=== PATIENT | male | born 1985 | race African-American/Black ===

== ENCOUNTER 2020-06-03 13:15 | Inpatient (IN) | payer OTHER ==
[2020-06-03 15:37] VITALS: BMI 21.9
[2020-06-03] MEDS ORDERED: MAGNESIUM CITRATE 300 ML BOTTLE PO PRN (16:20)
[2020-06-03] MEDS ORDERED: ACETAMINOPHEN 325 MG TABLET (FP) PO PRN (16:20)
[2020-06-03] MEDS ORDERED: NICOTINE POLACRILEX 2 MG GUM BUC PRN (16:20)
[2020-06-03] MEDS ORDERED: METHOCARBAMOL 500 MG TABLET PO PRN (16:20)
[2020-06-03] MEDS ORDERED: MENTHOL/PHENOL 1 EACH UD MM PRN (16:20)
[2020-06-03] MEDS ORDERED: ONDANSETRON *ODT* 4 MG TABLET SL PRN (16:20)
[2020-06-03] MEDS ORDERED: MAG HYDROX/AL HYDROX/SIMETH 30 ML UNIT-DOSE CUP PO PRN (16:20)
[2020-06-03] MEDS ORDERED: MAGNESIUM HYDROX 2400MG/30ML ORAL SUSPENSION 30 ML CUP PO PRN (16:20)
[2020-06-03] MEDS ORDERED: chlordiazePOXIDE HCL 25 MG CAPSULE PO PRN (16:22)
[2020-06-03] MEDS: chlordiazePOXIDE HCL 25 MG CAPSULE PO SCH ×2 (18:11→22:14)
[2020-06-03] MEDS: MELATONIN 5 MG TABLETS PO SCH (22:14)
[2020-06-03] MEDS: THIAMINE HCL 100 MG TABLET (FP) PO SCH (22:14)
[2020-06-03] MEDS: BACITRACIN 0.9 GM PACKET TP SCH (22:17)
[2020-06-04] MEDS: chlordiazePOXIDE HCL 25 MG CAPSULE PO SCH ×4 (05:33→22:23)
[2020-06-04] MEDS: PRENATAL VITAMINS W/ FOLIC ACID TABLET (FP) PO SCH (10:23)
[2020-06-04] MEDS: IBUPROFEN 400 MG TABLET (FP) PO PRN (10:26)
[2020-06-04] MEDS: BACITRACIN 0.9 GM PACKET TP SCH ×2 (10:27→22:25)
[2020-06-04 11:34] LABS: HEMATOCRIT 34.2 % (35.4-49); HEMOGLOBIN 11.6 GM/dL (11.7-16.9); MEAN CELL VOLUME 85.3 fl (80-96); MEAN PLT VOLUME 8.6 fl (7.5-11.1); PLATELET COUNT 112 K/MM3 (134-434); RBC 4.01 M/mm3 (4.00-5.60); RDW 15.4 % (11.9-15.9); WHITE BLOOD COUNT 6.1 K/mm3 (4.0-10.0)
[2020-06-04 11:49] LABS: BLOOD UREA NITROGEN 5.8 mg/dL (7-18); CALCIUM 8.9 mg/dL (8.5-10.1)
[2020-06-04 11:52] LABS: CREATININE 0.9 mg/dL (0.55-1.3)
[2020-06-04 11:53] LABS: BILIRUBIN,TOTAL 0.8 mg/dL (0.2-1); TOT PROT 6.6 g/dl (6.4-8.2)
[2020-06-04 11:55] LABS: POTASSIUM 3.7 mmol/L (3.5-5.1)
[2020-06-04] MEDS: BISMUTH SUBSALICYLATE 524 MG/30 ML UD PO PRN ×2 (18:44→20:08)
[2020-06-04] MEDS: THIAMINE HCL 100 MG TABLET (FP) PO SCH (22:23)
[2020-06-04] MEDS: MELATONIN 5 MG TABLETS PO SCH (22:23)
[2020-06-05] MEDS: chlordiazePOXIDE HCL 25 MG CAPSULE PO SCH ×4 (06:08→22:33)
[2020-06-05] MEDS: IBUPROFEN 400 MG TABLET (FP) PO PRN ×2 (06:09→20:30)
[2020-06-05] MEDS: PRENATAL VITAMINS W/ FOLIC ACID TABLET (FP) PO SCH (11:12)
[2020-06-05] MEDS: BACITRACIN 0.9 GM PACKET TP SCH ×2 (11:13→22:32)
[2020-06-05] MEDS: MELATONIN 5 MG TABLETS PO SCH (22:33)
[2020-06-05] MEDS: THIAMINE HCL 100 MG TABLET (FP) PO SCH (22:33)
[2020-06-06] MEDS ORDERED: chlordiazePOXIDE HCL 10 MG CAPSULE PO PRN
[2020-06-06] MEDS: ACETAMINOPHEN 325 MG TABLET (FP) PO PRN (03:10)
[2020-06-06] MEDS: chlordiazePOXIDE HCL 10 MG CAPSULE PO SCH ×4 (05:15→22:28)
[2020-06-06] MEDS: IBUPROFEN 400 MG TABLET (FP) PO PRN (08:27)
[2020-06-06] MEDS: PRENATAL VITAMINS W/ FOLIC ACID TABLET (FP) PO SCH (10:37)
[2020-06-06] MEDS: BACITRACIN 0.9 GM PACKET TP SCH ×2 (10:38→22:31)
[2020-06-06] MEDS: THIAMINE HCL 100 MG TABLET (FP) PO SCH (22:28)
[2020-06-06] MEDS: MELATONIN 5 MG TABLETS PO SCH (22:29)
[2020-06-07] MEDS ORDERED: chlordiazePOXIDE HCL 10 MG CAPSULE PO SCH (05:00)
[2020-06-07] MEDS: ACETAMINOPHEN 325 MG TABLET (FP) PO PRN (05:28)
[2020-06-07 09:17] VITALS: BP 117/69; PULSE 56; TEMP 97.3
[2020-06-08] MEDS ORDERED: chlordiazePOXIDE HCL 10 MG CAPSULE PO ONE (05:00)
== END 2020-06-07 11:20 | disposition home or self-care (01) | DRG 775 ==
LOC: YASAS 13:15 → Y3N 16:29
PROVIDERS: ADMIT Allergy & Immunology; ATTEND Allergy & Immunology
PROC: HZ2ZZZZ Detoxification Services for Substance Abuse Treatment (ICD-10-PCS; principal; 2020-06-03)
DX: F10.230 Alcohol dependence with withdrawal, uncomplicated (principal); F17.210 Nicotine dependence, cigarettes, uncomplicated; S89.81XD Other specified injuries of right lower leg, subsequent encounter; W19.XXXD Unspecified fall, subsequent encounter; Z91.81 History of falling
CPT/HCPCS: 36415; 73590-TC-RT-FY; 80053; 85027; 86780; C9803; U0003